=== PATIENT | female | born 1960 | race American Indian/Alaskan Native ===

== ENCOUNTER 2016-03-13 14:44 | Outpatient (CLI) | payer BC ==
--- NOTE | 2016-03-13 15:56 | Cat Scan Report ---
CT CHEST WITHOUT CONTRAST: 03/13/16 14:44:00 CLINICAL: Chest pain. TECHNIQUE: Volumetric acquisition and 1.25 mm scan reconstructions without contrast. FINDINGS: Normal heart and aorta. Mild calcification of the aorta. The pulmonary vasculature is unremarkable. The lungs are clear. No pulmonary nodule or mass. No pleural effusion. No mass or lymphadenopathy. Mild diffuse enlargement of the thyroid with no thyroid nodule or cyst identified. Normal trachea and esophagus. The upper abdomen is unremarkable. Mild degenerative changes in the thoracic spine. The soft tissues are normal. IMPRESSION: Mild thyroid enlargement and otherwise normal study.
== END 2016-03-13 14:45 | disposition home or self-care (01) ==
LOC: SPVIMAG 14:44
DX: M47.894 Other spondylosis, thoracic region (principal); I70.0 Atherosclerosis of aorta; E04.9 Nontoxic goiter, unspecified
CPT/HCPCS: 71250

== ENCOUNTER 2016-11-10 08:04 | Outpatient (CLI) | payer BC ==
--- NOTE | 2016-11-10 09:42 | Mammography Report ---
BILATERAL DIGITAL SCREENING MAMMOGRAM with CAD : 11/10/16 08:04:00 CLINICAL: Routine screening. COMPARISON:11/08/15, 11/06/14 and 10/23/13 FINDINGS: The breasts are heterogeneously dense, which may obscure small masses. No mass, architectural distortion or suspicious calcifications. IMPRESSION: No mammographic evidence of malignancy. BI-RADS CATEGORY: 2 -- Benign RECOMMENDATION: Routine mammographic screening in one year. COMMENT: Patient follow-up letters are generated by our [employer] application.
== END 2016-11-10 08:05 | disposition home or self-care (01) ==
LOC: SPVWC 08:04
DX: Z12.31 Encounter for screening mammogram for malignant neoplasm of breast (principal)
CPT/HCPCS: 77067; G0202

== ENCOUNTER 2018-11-15 07:57 | Outpatient (CLI) | payer BC ==
--- NOTE | 2018-11-15 12:16 | Mammography Report ---
DIGITAL SCREENING MAMMOGRAM WITH CAD, 11/15/2018 INDICATION: Routine screening mammography. TECHNIQUE: Digital bilateral 2D mammography was obtained in the craniocaudal and mediolateral obliq ue projections. This examination was interpreted with the benefit of Computer-Aided Detection analysi s. COMPARISON: 11/10/2017 and 11/10/2016 FINDINGS: Breast Density: The breasts are heterogeneously dense, which may obscure small masses. There is no evidence of dominant mass, suspicious calcifications or architectural distortion in eithe r breast. Left upper outer parenchymal asymmetry is unchanged compared to previous exams. IMPRESSION: No mammographic evidence of malignancy. Follow up recommendation: Routine yearly BI-RADS Category 2: Benign. A "normal" or negative report should not discourage follow up or biopsy of a clinically significant f inding. A written summary of these findings will be mailed to the patient. The patient will be entered into a mammography reporting system which will generate a reminder letter for the patient's next appointmen t at the appropriate interval. [employer] recommends yearly mammograms starting at age 40 and continuing as l lorna as a woman is in good health. Breast MRI is recommended for women with an approximate 20-25% or greater lifetime risk of breast cancer, including women with a strong family history of breast or ova perfecto cancer or who have been treated for Hodgkin's disease. Signer Name: Rudolph Perez MD Signed: 11/15/2018 12:11 PM Workstation Name: [id number]
== END 2018-11-15 07:58 | disposition home or self-care (01) ==
LOC: SPVWC 07:57
PROVIDERS: ATTEND Family Medicine
DX: Z12.31 Encounter for screening mammogram for malignant neoplasm of breast (principal); I10 Essential (primary) hypertension; K21.9 Gastro-esophageal reflux disease without esophagitis
CPT/HCPCS: 77067